=== PATIENT | female | born 1940 | race Two or more races ===

== ENCOUNTER 2017-10-17 17:28 | Emergency (ER) | payer MEDICARE, OTHER ==
--- NOTE | 2017-10-17 19:31 | ED Physician Documentation ---
PD HPI NVD - Stated complaint Stated Complaint: VOMITING/DIABETIC HIGH BLOOD SUGAR - Chief complaint Chief Complaint: General - History obtained from History obtained from: Patient - History of Present Illness Timing - onset: Today Timing - duration: Hours (she is traveling/[place]iting from [place] and had 2 episodes of vomiting and felt general malaise today. Did not have glucometer with her. She is non insulin dependent diabetic. To ED to have BP and blood sugar checked.) Timing - details: Intermittant Associated symptoms: Loss of appetite. No: Fever, Abdominal pain, Dizzy, Near syncope / syncope, Dysuria Contributing factors: Travel (just yesterday). No: Sick contact, Bad food Improved by: No: Eating, Vomiting Worsened by: Eating Similar symptoms before: Has not had sx before Recently seen: Not recently seen Review of Systems Constitutional: denies: Fever, Chills, Myalgias Nose: denies: Rhinorrhea / runny nose, Congestion Throat: denies: Sore throat Cardiac: denies: Chest pain / pressure, Palpitations Respiratory: denies: Dyspnea, Cough GI: reports: Nausea, Vomiting (just couple times today). denies: Abdominal Pain : denies: Dysuria, Frequency Musculoskeletal: denies: Extremity swelling Neurologic: reports: Generalized weakness. denies: Focal weakness, Numbness, Near syncope, Altered mental status, Headache PD PAST MEDICAL HISTORY - Past Medical History Past Medical History: Yes Cardiovascular: Hypertension Endocrine/Autoimmune: Type 2 diabetes Musculoskeletal: Gout - Past Surgical History Past Surgical History: Yes /COMPENSATION CONSULTANT: section HEENT: Cataracts - Present Medications Home Medications: Ambulatory Orders Medication Instructions Recorded Confirmed Amitriptyline [Elavil] 25 mg PO DAILY 10/17/17 10/17/17 Aspirin 81 mg PO DAILY 10/17/17 10/17/17 Colchicine 0.6 mg PO DAILY 10/17/17 10/17/17 Felodipine [Plendil] 2.5 mg PO DAILY 10/17/17 10/17/17 Simvastatin [Zocor] 20 mg PO DAILY 10/17/17 10/17/17 metFORMIN [Glucophage] 500 mg PO DAILY 10/17/17 10/17/17 - Allergies Allergies/Adverse Reactions: Allergies Allergy/AdvReac Type Severity Reaction Status Date / Time No Known Drug Allergies Allergy Verified 10/17/17 18:39 - Social History Does the pt smoke?: No Smoking Status: Never smoker Does the pt drink ETOH?: No Does the pt have substance abuse?: No - Immunizations Immunizations are current?: Yes PD ED PE NORMAL - Vitals Vital signs reviewed: Yes - General General: Alert and oriented X 3, No acute distress, Well developed/nourished - HEENT HEENT: Pharynx benign - Neck Neck: Supple, no meningeal sign, No adenopathy - Cardiac Cardiac: RRR, No murmur - Respiratory Respiratory: Clear bilaterally - Abdomen Abdomen: Normal bowel sounds, Soft, Non tender, Non distended - Back Back: No CVA TTP - Derm Derm: Normal color, Warm and dry - Extremities Extremities: No deformity, No tenderness to palpate, Normal ROM s pain, No edema , No calf tenderness / cord - Neuro Neuro: Alert and oriented X 3, No motor deficit, Normal speech - Psych Psych: Normal mood, Normal affect Results - Vitals Vitals: Oxygen O2 Source Room air - Labs Labs: Laboratory Tests 10/17/17 10/17/17 17:38 19:32 POC Whole Bld Glucose 119 H Urine Color YELLOW Urine Clarity CLEAR Urine pH 6.5 Ur Specific [place] 1.020 Urine Protein TRACE Urine Glucose (UA) NEGATIVE Urine Ketones TRACE Urine Occult Blood NEGATIVE Urine Nitrite NEGATIVE Urine Bilirubin NEGATIVE Urine Urobilinogen 1 (NORMAL) Ur Leukocyte Esterase NEGATIVE Ur Microscopic Review NOT INDICATED Urine Culture Comments NOT INDICATED PD MEDICAL DECISION MAKING - ED course Complexity details: considered differential (BP slightly elevated but decreases without intervention. blood sugar okay. ), d/w patient Departure - Departure Disposition: 01 Home, Self Care Clinical Impression: Nausea & vomiting Qualifiers: Vomiting type: unspecified Vomiting Intractability: non-intractable Qualified Code(s): R11.2 - Nausea with vomiting, unspecified Condition: Stable Record reviewed to determine appropriate education?: Yes Instructions: ED Nausea Vomiting Comments: Small frequent fluids. Ondansetron if needed for nausea every 6 hours. See how you feel of the next day or 2. Your blood sugar is okay. Your blood pressures a bit elevated at this time but I would just recheck it over the next few days or so or back with your primary care when you return home. Recheck if not better over the next day or 2 or if you have other symptoms such as abdominal pain persistent diarrhea bloody stool etc. Discharge Date/Time: 10/17/17 20:34
[2017-10-17 19:48] LABS: BILIRUBIN,URINE NEGATIVE (NEGATIVE); CLARITY,URINE CLEAR (CLEAR); GLUCOSE, URINE (UA) NEGATIVE (NEGATIVE); KETONES,URINE (UA) TRACE mg/dL (NEGATIVE); LEUKOCYTE ESTERASE, URINE NEGATIVE (NEGATIVE); NITRITE,URINE NEGATIVE (NEGATIVE); OCCULT BLOOD,URINE NEGATIVE (NEGATIVE); PH,URINE 6.5 PH (5.0-7.5); PROTEIN,URINE TRACE mg/dL (NEGATIVE); UROBILINOGEN,URINE 1 (NORMAL) E.U./dL (NORMAL)
[2017-10-17] MEDS ORDERED: ONDANSETRON ODT 4 MG TABLET TL STA (19:48)
[2017-10-17 20:36] VITALS: BP 139/68
== END 2017-10-17 20:34 | disposition home or self-care (01) ==
LOC: ED 17:28
DX: R11.2 Nausea with vomiting, unspecified (principal); I10 Essential (primary) hypertension; Z79.82 Long term (current) use of aspirin
CPT/HCPCS: 81003; 99283; Q0162; 81001; 87086